=== PATIENT | female | born 1985 | race Caucasian/White ===

== ENCOUNTER → 2019-07-16 | Outpatient (REF) | payer BC, MEDICAID, OTHER | LOC: M LAB REF 18:41 | PROVIDERS: ATTEND Dermatology | DX: D22.61 Melanocytic nevi of right upper limb, including shoulder (principal) ==

== ENCOUNTER → 2019-12-03 | Outpatient (REF) | payer BC | LOC: M LAB REF 08:48 | PROVIDERS: ATTEND Dermatology | DX: D22.61 Melanocytic nevi of right upper limb, including shoulder (principal) ==